=== PATIENT | female | born 1985 | race African-American/Black ===

== ENCOUNTER 2023-03-31 15:59 | Outpatient (CLI) | payer OTHER, SELFPAY ==
[2023-03-31 18:44] LABS: Thyroid Stimulating Hormone Reflex 0.964 uIU/mL (0.465-4.68)
== END 2023-03-31 16:00 | disposition home or self-care (01) ==
LOC: ANHLAB 16:01
PROVIDERS: PCP Nurse Practitioner Family; Visit Provider Student in an Organized Health Care Education/Training Program
DX: R53.83 Other fatigue (principal)
CPT/HCPCS: 36415; 84443

== ENCOUNTER 2023-11-14 12:03 | Outpatient (CLI) | payer OTHER, SELFPAY ==
[2023-11-14 14:00] LABS: HIV 1/2 Ab P24 Ag Result Negative (Negative)
[2023-11-14 14:10] LABS: Hepatitis B Surface Antigen Negative (Negative)
[2023-11-14 14:15] LABS: HAV RESULT Negative (Negative); Hepatitis B Core IgM Result Negative (Negative)
[2023-11-14 14:27] LABS: Hepatitis C Virus Antibody Negative (Negative)
[2023-11-14 17:28] LABS: Rapid Plasma Reagin Non-Reactive (NonReactive)
== END 2023-11-14 12:04 | disposition home or self-care (01) ==
LOC: ANHLAB 12:05
PROVIDERS: PCP Nurse Practitioner Family; Visit Provider Student in an Organized Health Care Education/Training Program
DX: Z20.2 Contact with and (suspected) exposure to infections with a predominantly sexual mode of transmission (principal)
CPT/HCPCS: 36415; 80074; 86592; 86695; 86696; 86703; G0432

== ENCOUNTER 2024-02-08 15:22 | Outpatient (CLI) | payer OTHER, SELFPAY ==
--- NOTE | ~2024-02-08 | MM_ITS ---
EXAMINATION: MM screening mammo BI HISTORY: Screening TECHNIQUE: Craniocaudal and mediolateral oblique 3-D tomosynthesis images were obtained and synthetic 2-D images were generated. CAD analysis was submitted and interpreted. COMPARISON: Comparison to multiple prior studies sequentially, with oldest reviewed study dated 06/2014. BREAST PARENCHYMAL COMPOSITION: Not dense: There are scattered areas of fibroglandular density. FINDINGS: There is no evidence of suspicious mass, calcification, or architectural distortion to sugg est malignancy in either breast. There has been no suspicious interval change. IMPRESSION: 1. No mammographic evidence of malignancy. 2. Recommend routine screening mammography in one year. BI-RADS Category 1: Negative Reviewed, dictated and finalized at location B. [employer]
== END 2024-02-08 15:23 | disposition home or self-care (01) ==
LOC: ANHIMG 15:23
PROVIDERS: PCP Nurse Practitioner Family; Visit Provider Student in an Organized Health Care Education/Training Program
DX: Z12.31 Encounter for screening mammogram for malignant neoplasm of breast (principal); Z80.3 Family history of malignant neoplasm of breast
CPT/HCPCS: 77067